=== PATIENT | male | born 1935 | race Caucasian/White ===

== ENCOUNTER 2016-10-07 20:06 | Emergency (ER) | payer MEDICARE, BC ==
[~2016-10-07] VITALS: Ht 180.3 cm; Wt 102.1 kg
[~2016-10-07 20:06] MED LIST: ASPI-COR81 M1 PO; KLOR-CON 1010 MEQ PO; LASIX20 MG PO; LIPITOR20 MG PO; LOTREL 10 MG-201 CAP PO; MAGNESIUM27 MG PO; MIRAPEX0.5 MG PO; Motrin,Rufen800 MG PO; NEXIUM40 MG PO; SINEMET 25-1001 TA1 PO; TRICOR145 MG PO; VITAMIN D31000 IU PO; XANAX0.25 MG PO
[2016-10-07] MEDS ORDERED: GLYCOPYRROLATE1 MG PO (20:10)
[2016-10-07] MEDS ORDERED: ACYCLOVIR200 MG/5 M PO (21:11)
[2016-10-07] MEDS ORDERED: TYLENOL W/ CODEI5 ML PO (21:11)
[2016-10-07] MEDS ORDERED: KENALOG 0.1%80 GM T (21:13)
== END 2016-10-07 21:41 | disposition home or self-care (01) ==
LOC: ED 20:06
DX: L25.9 Unspecified contact dermatitis, unspecified cause (principal); B02.9 Zoster without complications; I10 Essential (primary) hypertension; E78.5 Hyperlipidemia, unspecified; Z79.82 Long term (current) use of aspirin; Z79.899 Other long term (current) drug therapy

== ENCOUNTER 2016-12-12 22:18 | Inpatient (IN) | payer MEDICARE, BC ==
[~2016-12-12] VITALS: Ht 172.7 cm; Wt 88.6 kg
--- NOTE | ~2016-12-12 | CON ---
[place], [place] REPORT OF CONSULTATION NAME: JAYMIE RASHID UNIT #: [id number] ROOM: 409 DOCTOR: RONNA HernándezUMESH BIRTHDATE: [birth year] DOS: 12/13/2016 HISTORY OF PRESENT ILLNESS: This is an 80-year-old male with chronic debility secondary to severe Parkinson's disease with very limited mobility and difficulty ambulating. He was admitted to the Emergency Department with redness in his legs as well as severe weakness. The patient has, it sounds like, a home health aide that comes in to help wash him. He does have a history of bedsores on his buttock area as well as his scrotal area, which he says that he has had off and on for months now; they heal, but then they quickly reopen depending on how he is being transferred. He says they do open very easily and he is complaining of some discomfort on one of the areas on the scrotal area. He says that they have been using some kind of soap on his buttock area and scrotal area, but he is not sure what it is. He does not report any kind of dressings being used other than some sort of soap. PAST MEDICAL HISTORY: Significant for the following: History of acute renal injury, contact dermatitis, diarrhea, history of dyslipidemia, history of herpes zoster, hypertension, lower GI bleed, lymphedema, Parkinson's disease, which is quite severe, rectal bleed, history of reducible bulge of the abdominal wall, history of melanoma. PAST SURGICAL HISTORY: Melanoma excision from the back. SOCIAL HISTORY: He does not smoke and/or drink. FAMILY HISTORY: Significant for emphysema in his father, heart disease in his mother. ALLERGIES: ____ LATEX, ____. CURRENT MEDICATIONS: That have been ordered are as follows: Tricor 145 mg p.o. daily, Lipitor 20 daily, aspirin 81 daily, vancomycin 1500 mg IV daily, Mirapex 0.5 p.o. b.i.d., Xanax 0.25 at bedtime, Sinemet 25 mg 1 tablet q. 6 hours, Calazime cream, meropenem 1 gram IV q. 12, Lovenox 40 subq daily, Protonix 40 p.o. daily, Zofran 4 mg IV q. 6 hours p.r.n., milk of magnesia p.r.n., Dulcolax p.r.n., [place] p.r.n., Tylenol p.r.n. REVIEW OF SYSTEMS: The patient reports poor appetite for the past 24 hours. He denies any chest pain or shortness of breath, nausea or vomiting, abdominal pains, or diarrhea. He is not incontinent of stool or bladder. He states that he has significant pain when just turning over in bed to look at the wounds on his backside. He states that the wounds heal fairly easily, but open up recurrently as well depending on movements and the way he is transferred. He reports rib pain whenever he is being turned over. He reports severe discomfort with his toenails even just touching them or causing extreme pain. PHYSICAL EXAMINATION: VITAL SIGNS: Stable. Temperature is 98.6, pulse is 84, respirations 20, blood pressure is 108/48. GENERAL: This is an alert male, very pleasant and cooperative, who appears [place], [place] REPORT OF CONSULTATION NAME: JAYMIE RASHID UNIT #: [id number] ROOM: [facility] DOCTOR: UMESH FRIEND M.D. BIRTHDATE: [birth year] chronically ill and debilitated. HEENT: His oropharynx is clear. Mucous membranes are moist. Extraocular movements are intact. NECK: There is no JVD. He is very rigid, has very limited mobility. LUNGS: Clear to auscultation bilaterally. CARDIOVASCULAR: S1, S2 regular rate and rhythm. ABDOMEN: Soft and nontender at the present time. EXTREMITIES: He has severe cellulitis of bilateral lower extremities noted they go all the way to the foot up to above the knee and to the thigh areas, even up to the hip on both of his legs, which is quite dramatic. There are multiple hyperkeratosis, cirrhosis on bilateral lower extremities. These scales come right off with just a sterile Q-tip. I do not see any open areas underneath the scales at this point. He states that he had some open draining blisters noted around the ankles. There was only one blister that I saw that did have some purulent material in it and it was located on the right anterior ankle area. This was examined with a sterile Q-tip and purulent material was drained from it just upon examination and then afterwards I did not see any other blistered areas. So, it appears that maybe some of the blisters have broken, but currently I do not see any other blisters at this time. His toes are warm, but once again, he is very sensitive to examination. He has severe onychomycosis bilaterally. I tried to spread the toes. I did not see any open ulcers in between the toes. His dorsalis pedis pulses are palpable, but posterior tibial is difficult to feel. He has no overt calf tenderness that I could appreciate. Upon examination of the buttock area, there is a large discoloration present with what appears to be consistent with a healing ulcer. It is not actually open at this time, but it does appear that he has had some ulceration there that has healed. I would say approximately the size of my hand. He also has discoloration noted on the right buttock area also that seems to be consistent with prior ulceration and also, there is some lichenification noted due to chronic friction between the scrotal and the buttock areas seems to be noted on the right side as well. So, I think that some of that appears to be chronic as well. The posterior scrotum area is erythematous. There is only one small area that is actually opened at this time and that open area is a small ulceration that is really the size of an eraser and it is tender to touch; however, but the surrounding tissue does not appear tender. It is not acutely warm, but it seems to be chronically erythematous. LABORATORY DATA: The patient's white count is 25.7 and his hemoglobin is 11. His platelets are 362. His sodium is 135, BUN is 31, creatinine is 1.5, potassium is 3.6, glucose is 121. Albumin is low at 2.6. The patient had a chest x-ray done, which shows left lower lobe atelectasis. 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 He has areas that were reported to be blistering. I do not see any at this time. The one that I had seen actually was a pustule that actually broke just by examination with a sterile Q-tip. I do not see any other blisters or pustules at this time. He already has had venous and arterial Dopplers ordered by Podiatry. Lac-Hydrin has been ordered as well, which should help with the scaling, a lot of this scaling actually just comes off quite [place], [place] REPORT OF CONSULTATION NAME: JAYMIE RASHID UNIT #: [id number] ROOM: [facility] DOCTOR: UMESH FRIEND M.D. BIRTHDATE: [birth year] easily with a sterile Q-tip and I would like to have them wash his legs with chlorhexidine soap for now and continue with the Lac-Hydrin for now as well for any open areas such as pustules seems that I drained, I would like to use Bactroban for now. Podiatry is going to take care of his toenails tomorrow. I would also recommend marking the area of erythema that goes up quite a bit over to the thigh area to make sure that it is improving with therapy. As far as for the pressure ulcers of the buttock area and scrotal area, the buttock area appears to be healed at this time. I would just keep it protected with a foam for now and encourage offloading as much as possible. For the scrotal area, I would use nystatin powder as well as Calazime ointment as well for now. For the small open ulcer, I would apply Bactroban to it for now and keep a close eye on this. For the scrotal area, I would also like Infectious Disease to evaluate the ulcer for their opinion as well secondary to the possibility of herpetic lesion as being also in the differential for this area. UMESH FRIEND MD CM:CONSTR:REPORT OF CONSULTATION 1503 12/13/16 1633 interface
--- NOTE | ~2016-12-12 | PR ---
[place], [place] PROGRESS NOTE NAME: JAYMIE RASHID UNIT #: [id number] ROOM: 409 DOCTOR: JIMMIE PATEL DPM BIRTHDATE: [birth year] DOS: 12/14/2016 SUBJECTIVE: This patient is seen for followup of onychomycosis and painful elongated toenails as well as some cellulitis in both lower legs. He has no complaints at this time. His legs above the knee are sensitive and painful. OBJECTIVE: Upon lower extremity examination, pedal pulses diminished bilaterally, absent hair growth is noted. There is dry scaly stasis dermatitis of both lower legs with no real open wounds noted at this time. There is some dry peeling skin. Nails 1 through 5 bilaterally are thickened, elongated, brittle and dystrophic with subungual debris present. He does have erythema above the knee. The lower legs actually have minimal erythema and increased temperature. Minimal signs of infection at this time. His venous Dopplers were negative for DVT. His arterial study showed some inflow disease that showed severe peripheral vascular disease with occlusion of the distal right SFA with reconstitution at the popliteal artery. Aortoiliac inflow disease was suspected. ASSESSMENT: Peripheral arterial disease bilaterally, venous insufficiency with dermatitis, improving cellulitis in the lower legs, onychomycosis 1 through 5 bilaterally with pain. PLAN: Manual and mechanical debridement of mycotic nails 1 through 5 bilaterally in length and thickness to the level of the nail bed to reduce as such infection. I discussed with the patient and his family member that he does have a fairly severe PAD. This will need to be addressed by a vascular surgeon upon discharge. He has no necrotic areas on the lower leg, foot or ankle. No gangrenous tissue, no open wounds. His erythema is improving in the lower legs, foot and ankle but he still has some erythema proximal to the knee. Would not recommend any compression because of the PAD and follow up with the patient on Saturday if he is still here. There is not a lot from a Podiatry standpoint to do at this point. Reevaluate on Saturday. [place], [place] PROGRESS NOTE NAME: JAYMIE RASHID UNIT #: [id number] ROOM: 409 DOCTOR: JIMMIE PATEL DPM BIRTHDATE: [birth year] JIMMIE PATEL DPM CM:PNTRANS 10 JIMMIE PATEL DPM 12/14/16 131 interface
--- NOTE | ~2016-12-12 | CON ---
[place], [place] REPORT OF CONSULTATION NAME: JAYMIE RASHID UNIT #: [id number] ROOM: 409 DOCTOR: KY LOJA DPM BIRTHDATE: [birth year] DOS: 12/13/2016 SUBJECTIVE: The patient presents as an 80-year-old male with chief complaint of elongated thickened nails of both feet with sores on both ankles with swelling and redness to both lower legs. PAST MEDICAL HISTORY: The patient has a past medical history of bilateral lower leg cellulitis, Parkinson's disease, acute renal injury, contact dermatitis, diarrhea, dyslipidemia, herpes zoster, hypertension, lower gastrointestinal bleed, lymphedema, Parkinson's disease, rectal bleed, reducible bulge abdominal wall, history of melanoma. PAST SURGICAL HISTORY: Melanoma excised from back. SOCIAL HISTORY: Denies illicit drug use, smoking or alcohol. FAMILY HISTORY: Father of emphysema. Mother of heart disease, relation not specified for CHF, diabetes and mother with hypertension. ALLERGIES: None. PHYSICAL EXAMINATION: EXTREMITIES: Lower extremity examination: Pedal pulses diminished both lower extremities. No hair growth bilateral. Dry scaly venous stasis dermatitis of bilateral lower legs with open skin partial thickness medial bilateral ankle. There is edema and pain in both lower extremities, crumby thickened yellow nails 1 through 5 bilateral, causing pain. ASSESSMENT: Onychomycosis, peripheral vascular disease, edema, venous insufficiency, venous stasis dermatitis, xerosis bilateral. PLAN: Evaluation and management. Ordered venous and arterial Doppler of bilateral lower extremity, ordered ammonium lactate 12% applied to both lower extremities. I was not able to debride the patient's nails at this visit as I could not have my instrument pack in the car when I obtained the consult and we will debride the nails tomorrow. KY LOJA DPM CM:CONSTR:REPORT OF CONSULTATION 1156 12/13/16 1238 interface
--- NOTE | ~2016-12-12 | CON ---
[place], [place] REPORT OF CONSULTATION NAME: JAYMIE RASHID UNIT #: [id number] ROOM: 409 DOCTOR: DEQUAN KRAUS [facility] BIRTH[facility]: [birth year] DOS: 12/15/2016 HISTORY OF PRESENT ILLNESS: The patient came in with cellulitis of the both lower extremities with superficial wounds and has severe endomyocardial ischemia of lower extremities and progressing for last 1 year. This time it has gotten worse and came to the emergency room. The popliteal and posterior tibial pulses were markedly diminished, unable to palpate. Skin has also chronic changes. Peripheral arteries in the lower extremities markedly abnormal, more so probably still occlusion of the distal bilateral ____ markedly diminished flow below the knee also. Even femoral pulses palpation is difficult, neuron related, but the poor pulses may also be due to the significant edema. The patient has history of Parkinson's and history of pertinent malnutrition, gastroesophageal reflux disease. The patient has dyslipidemia and history of chronic kidney disease with acute process. Cellulitis of the both lower extremities, probably chronic vascular insufficiency and that is why it is not healing. The podiatrists requested for further management of vascular peripheral arteriogram, aortobifemoral angio with distal run off and revascularization. Options, procedure, complications, and mortality were explained to the patient. Will have Nephrology also follow the patient post angio to follow and carefully manage the renal function because of the contrast-induced nephropathy is one of the considerations. We will be careful about the amount of contrast used we may stay at the procedure. PHYSICAL EXAMINATION: GENERAL: As described. Diminished peripheral circulation with chronic changes from the ischemia, also with cellulitis, and superficial wounds. VITAL SIGNS: The patient is afebrile. Blood pressure 106/51, respiratory rate 18, heart rate 74. LABORATORY DATA: WBC count 13.8, probably invalid information; hemoglobin 11.3; platelet count 380, should be able to give the platelet-active drugs. Electrolytes are normal. Chloride 111, creatinine 0.96. Stable renal function now, should be able to give contrast without any significant decompensation with history of chronic kidney disease in the past. DIAGNOSES: 1. Severe peripheral arterial disease. 2. Secondary cellulitis and skin changes. 3. Diminished pulses in the lower extremities. PLAN: We will perform aortobifemoral angio with runoff with possible intervention. Options, procedures, complications, and mortality risk is explained. [place], [place] REPORT OF CONSULTATION NAME: JAYMIE RASHID UNIT #: [id number] ROOM: 409 DOCTOR: DEQUAN KRAUS [facility] BIRTHDATE: [birth year] MAXWELL BAIRES MD CM:CONSTR:REPORT OF CONSULTATION 1745 12/17/16 1055 interface
--- NOTE | ~2016-12-12 | PR ---
[place], [place] PROGRESS NOTE NAME: JAYMIE RASHID UNIT #: [id number] ROOM: 409 DOCTOR: NATA KRAUS,CHIP Wei BIRTHDATE: [birth year] DOS: 12/15/2016 ADDENDUM I agree with above plans as described. We will follow the patient up clinically and adjust accordingly. CHIP PEACE MD CM:PNTRANS 1203 CHIP PEACE MD 12/17/16 2238 interface
--- NOTE | ~2016-12-12 | PR ---
[place], [place] PROGRESS NOTE NAME: JAYMIE RASHID UNIT #: [id number] ROOM: 409 DOCTOR: BRADLY SHAVERAUGUST BIRTHDATE: [birth year] DOS: SUBJECTIVE: The patient is an 81-year-old male who is being followed for severe cellulitis of bilateral lower extremities, left is worse than right. He has been improving over the last few days. His white count is coming down. He is currently on Ancef. His creatinine has also improved. His ultrasound of the lower extremities was negative for DVT. He denies any fevers, chills, nausea, vomiting. No diarrhea. He has been afebrile. His legs are improving and I also discussed with nursing, who agreed with that assessment. LABORATORY DATA: Showed WBC 13.8, platelets 380, BUN 17, creatinine 0.96. Blood cultures are negative. Urine cultures are negative. PHYSICAL EXAMINATION: VITAL SIGNS: Temp 97.9, pulse 74, respirations 18, BP 106/51. GENERAL: An 81-year-old male, in no acute distress. HEAD, EYES, EARS, NOSE AND THROAT: Normocephalic. No thrush. LUNGS: Clear to auscultation bilaterally. Respirations even and unlabored. HEART: Regular rhythm. No murmur appreciated. ABDOMEN: Soft, nontender. EXTREMITIES: +3 to 4 edema bilateral lower extremity. He does have descent dorsalis pedis pulses. No signs of ischemia. He has erythema of bilateral lower extremities up to his mid thigh, nearly up to the hip on the left. SKIN: Dry, flaking, peeling. Skin is otherwise warm and dry and no rashes. ASSESSMENT: Severe cellulitis of bilateral lower extremities, currently on Ancef. PLAN: At this point, his creatinine has normalized. His Ancef could be increased to q. 8 hours dosing even the severity of his infection, he states it did occur overnight. We will check an ASO titer for strep involvement and if it comes back elevated, I would add clindamycin. AUGUST CHHAYA ABDULLAHI [place], [place] PROGRESS NOTE NAME: JAYMIE RASHID UNIT #: [id number] ROOM: 409 DOCTOR: BRADLY SHAVER,AUGUST BIRTHDATE: [birth year] CHIP PEACE MD CM:PNTRANS 172 [id number] AUGUST BRADLY SHAVER 12/17/16 0811 interface
[~2016-12-12 22:18] MED LIST changes: +ACYCLOVIR200 MG/5 M PO; +GLYCOPYRROLATE1 MG PO; +KENALOG 0.1%80 GM T; +TYLENOL W/ CODEI5 ML PO
[2016-12-12 22:30] VITALS: BP 118/61
[2016-12-12 22:52] LABS: HEMOGLOBIN 11.8 g/dl (14.0-18.0); MEAN CELL VOLUME 87.2 fl (80.0-94.0); MEAN CORPUSCULAR HGB 28.6 pg (27.0-31.0); MEAN CORPUSCULAR HGB CONC 32.8 g/dl (33.0-37.0); MEAN PLATELET VOLUME 9.7 fl (9.6-12.3); PLATELET COUNT AUTOMATED 362 10*3/uL (130-400); RED BLOOD COUNT 4.13 10*6/uL (4.50-5.90); RED CELL DISTRI WIDTH 15.8 % (0-14.5); WHITE BLOOD COUNT 25.7 10*3/uL (4.8-10.8)
[2016-12-12 23:07] LABS: INTERNATIONAL NORM RATIO 1.2 (2.0-3.5); PROTHROMBIN TIME 12.8 SECONDS (8.9-12.2)
[2016-12-12 23:08] LABS: ALBUMIN 2.6 gm/dl (3.1-4.5); ALKALINE PHOSPHATASE 73 U/L (45-117); BILIRUBIN, TOTAL 0.8 mg/dl (0.2-1.0); BUN 31 mg/dl (7-24); CARBON DIOXIDE 24 mmol/L (21-32); CHLORIDE 103 mmol/L (98-107); EST GLOM FILT AFRICAN AMERICAN 54 ml/min; GLUCOSE 121 mg/dL (65-99); POTASSIUM 3.6 mmol/L (3.5-5.1); SGOT/AST 9 IU/L (3-35); SGPT/ALT 7 U/L (12-78); SODIUM 135 mmol/L (136-145); TOTAL PROTEIN 6.3 gm/dL (6.4-8.2)
[2016-12-12 23:09] LABS: CKMB 0.7 ng/ml (0.5-3.6)
[2016-12-12 23:10] VITALS: BP 142/84
[2016-12-12 23:11] LABS: LYMPHOCYTE # 0.5 10*3/uL (1.3-4.4); MONOCYTE # 0.8 10*3/uL (0.1-1.0); NEUTROPHIL # 24.4 10*3/uL (2.3-7.9); NEUTROPHILS 95 % (47-73); PLATELET SUFFICIENCY NORMAL (NORMAL); TOTAL CELLS COUNTED 100 #CELLS; TROPONIN I < 0.015 ng/ml (<0.045)
[2016-12-13] VITALS (8 sets, daily range): BP systolic 104–138; BP diastolic 45–80
[2016-12-13 10:28] LABS: BILIRUBIN NEGATIVE (NEGATIVE); BLOOD NEGATIVE (NEGATIVE); CLARITY CLEAR (CLEAR); COLOR YELLOW (YELLOW); GLUCOSE NEGATIVE (NEGATIVE); KETONE TRACE (NEGATIVE); LEUKO ESTERASE NEGATIVE (NEGATIVE); NITRITE NEGATIVE (NEGATIVE); PROTEIN TRACE (NEGATIVE)
[2016-12-13 10:39] LABS: URINE REFLEX COMMENT YES (NO)
[2016-12-14] VITALS: BP 114/53
[2016-12-14 06:41] LABS: BASO # 0.1 10*3/uL (0.0-0.1); BASO % 0.3 % (0.0-1.0); EOS # 0.2 10*3/uL (0.0-0.4); EOS % 1.1 % (1.0-4.0); HEMATOCRIT 33.2 % (42.0-52.0); HEMOGLOBIN 10.7 g/dl (14.0-18.0); IG # 0.1 10*3/uL (0.0-0.1); LYMPH # 1.4 10*3/uL (1.3-4.4); LYMPH % 7.7 % (27.0-41.0); MEAN CELL VOLUME 88.8 fl (80.0-94.0); MEAN CORPUSCULAR HGB 28.6 pg (27.0-31.0); MEAN CORPUSCULAR HGB CONC 32.2 g/dl (33.0-37.0); MEAN PLATELET VOLUME 10.3 fl (9.6-12.3); MONO # 1.1 10*3/uL (0.1-1.0); MONO % 6.1 % (3.0-9.0); NEUT # 14.8 10*3/uL (2.3-7.9); NEUT % 84.2 % (47.0-73.0); PLATELET COUNT AUTOMATED 356 10*3/uL (130-400); RED BLOOD COUNT 3.74 10*6/uL (4.50-5.90); RED CELL DISTRI WIDTH 15.9 % (0-14.5); WHITE BLOOD COUNT 17.6 10*3/uL (4.8-10.8)
[2016-12-14 07:13] LABS: ALKALINE PHOSPHATASE 81 U/L (45-117); BILIRUBIN, TOTAL 0.7 mg/dl (0.2-1.0); BUN 23 mg/dl (7-24); CARBON DIOXIDE 23 mmol/L (21-32); CHLORIDE 111 mmol/L (98-107); EST GLOM FILT AFRICAN AMERICAN > 60 ml/min; GLUCOSE 74 mg/dL (65-99); POTASSIUM 3.4 mmol/L (3.5-5.1); SGOT/AST 10 IU/L (3-35); SODIUM 140 mmol/L (136-145); TOTAL PROTEIN 5.9 gm/dL (6.4-8.2)
[2016-12-14 07:25] LABS: SGPT/ALT < 6 U/L (12-78)
[2016-12-14 08:00] VITALS: BP 163/73
[2016-12-14 12:00] VITALS: BP 162/78
[2016-12-14 16:00] VITALS: BP 142/78
[2016-12-14 20:00] VITALS: BP 116/59
[2016-12-15] VITALS: BP 125/65
[2016-12-15 06:23] LABS: BASO # 0.1 10*3/uL (0.0-0.1); BASO % 0.7 % (0.0-1.0); EOS # 0.4 10*3/uL (0.0-0.4); EOS % 2.8 % (1.0-4.0); HEMATOCRIT 34.4 % (42.0-52.0); HEMOGLOBIN 11.3 g/dl (14.0-18.0); IG # 0.2 10*3/uL (0.0-0.1); LYMPH # 1.4 10*3/uL (1.3-4.4); LYMPH % 10.3 % (27.0-41.0); MEAN CELL VOLUME 89.1 fl (80.0-94.0); MEAN CORPUSCULAR HGB 29.3 pg (27.0-31.0); MEAN CORPUSCULAR HGB CONC 32.8 g/dl (33.0-37.0); MEAN PLATELET VOLUME 10.1 fl (9.6-12.3); MONO % 7.5 % (3.0-9.0); NEUT # 10.7 10*3/uL (2.3-7.9); NEUT % 77.6 % (47.0-73.0); PLATELET COUNT AUTOMATED 380 10*3/uL (130-400); RED BLOOD COUNT 3.86 10*6/uL (4.50-5.90); RED CELL DISTRI WIDTH 16.2 % (0-14.5); WHITE BLOOD COUNT 13.8 10*3/uL (4.8-10.8)
[2016-12-15 06:38] LABS: BUN 17 mg/dl (7-24); CARBON DIOXIDE 25 mmol/L (21-32); CHLORIDE 111 mmol/L (98-107); EST GLOM FILT AFRICAN AMERICAN > 60 ml/min; GLUCOSE 104 mg/dL (65-99); POTASSIUM 3.7 mmol/L (3.5-5.1); SODIUM 144 mmol/L (136-145)
[2016-12-15 08:00] VITALS: BP 133/59
[2016-12-15 12:00] VITALS: BP 130/66
[2016-12-15 16:00] VITALS: BP 106/51
[2016-12-15 20:00] VITALS: BP 120/62
[2016-12-16] VITALS: BP 137/76
[2016-12-16 06:18] LABS: BASO # 0.1 10*3/uL (0.0-0.1); BASO % 0.9 % (0.0-1.0); EOS # 0.6 10*3/uL (0.0-0.4); EOS % 5.3 % (1.0-4.0); HEMATOCRIT 34.3 % (42.0-52.0); HEMOGLOBIN 10.9 g/dl (14.0-18.0); IG # 0.2 10*3/uL (0.0-0.1); LYMPH # 1.7 10*3/uL (1.3-4.4); LYMPH % 15.9 % (27.0-41.0); MEAN CELL VOLUME 88.2 fl (80.0-94.0); MEAN CORPUSCULAR HGB CONC 31.8 g/dl (33.0-37.0); MEAN PLATELET VOLUME 10.1 fl (9.6-12.3); MONO # 0.9 10*3/uL (0.1-1.0); MONO % 8.7 % (3.0-9.0); NEUT # 7.1 10*3/uL (2.3-7.9); NEUT % 67.3 % (47.0-73.0); PLATELET COUNT AUTOMATED 374 10*3/uL (130-400); RED BLOOD COUNT 3.89 10*6/uL (4.50-5.90); RED CELL DISTRI WIDTH 16.1 % (0-14.5); WHITE BLOOD COUNT 10.5 10*3/uL (4.8-10.8)
[2016-12-16 06:36] LABS: BUN 12 mg/dl (7-24); CARBON DIOXIDE 23 mmol/L (21-32); CHLORIDE 114 mmol/L (98-107); EST GLOM FILT AFRICAN AMERICAN > 60 ml/min; GLUCOSE 90 mg/dL (65-99); POTASSIUM 3.7 mmol/L (3.5-5.1); SODIUM 144 mmol/L (136-145)
[2016-12-16 08:00] VITALS: BP 132/66
[2016-12-16 12:00] VITALS: BP 135/55
[2016-12-16] MEDS ORDERED: NYSTOP100000 U/G T (13:23)
[2016-12-16] MEDS ORDERED: Lac-Hydrin 12%340 GM T (13:23)
[2016-12-16] MEDS ORDERED: BACTROBAN OINT0.9 GM T (13:23)
[2016-12-16] MEDS ORDERED: REMEDY WITH OLI1 PAS T (13:23)
[2016-12-16] MEDS ORDERED: CEFAZOLIN-2 GM/50 ML IV (13:23)
[2016-12-16] MEDS ORDERED: ZEASORB-AF2% T (13:23)
[2016-12-16 16:00] VITALS: BP 130/68
[2016-12-16 20:00] VITALS: BP 149/78
[2016-12-17] VITALS: BP 137/68
[2016-12-17 04:12] LABS: BASO # 0.1 10*3/uL (0.0-0.1); BASO % 0.8 % (0.0-1.0); EOS # 0.6 10*3/uL (0.0-0.4); EOS % 5.6 % (1.0-4.0); HEMATOCRIT 37.2 % (42.0-52.0); HEMOGLOBIN 12.1 g/dl (14.0-18.0); IG # 0.2 10*3/uL (0.0-0.1); LYMPH # 2.5 10*3/uL (1.3-4.4); MEAN CELL VOLUME 87.3 fl (80.0-94.0); MEAN CORPUSCULAR HGB 28.4 pg (27.0-31.0); MEAN CORPUSCULAR HGB CONC 32.5 g/dl (33.0-37.0); MEAN PLATELET VOLUME 9.8 fl (9.6-12.3); MONO # 0.8 10*3/uL (0.1-1.0); MONO % 7.8 % (3.0-9.0); NEUT # 6.2 10*3/uL (2.3-7.9); PLATELET COUNT AUTOMATED 413 10*3/uL (130-400); RED BLOOD COUNT 4.26 10*6/uL (4.50-5.90); WHITE BLOOD COUNT 10.3 10*3/uL (4.8-10.8)
[2016-12-17 04:27] LABS: BUN 11 mg/dl (7-24); CARBON DIOXIDE 24 mmol/L (21-32); CHLORIDE 110 mmol/L (98-107); EST GLOM FILT AFRICAN AMERICAN > 60 ml/min; GLUCOSE 86 mg/dL (65-99); POTASSIUM 3.7 mmol/L (3.5-5.1); SODIUM 142 mmol/L (136-145)
== END 2016-12-17 05:19 | disposition short-term general hospital (02) | DRG 871 ==
LOC: ED 22:18 → 4E 12-13 00:01 → EDHOLD 12-13 00:01 → 4E 12-13 00:16
PROVIDERS: Emergency Medicine Emergency Medical Services; Family Medicine; Internal Medicine
DX: A41.9 Sepsis, unspecified organism (principal); N17.0 Acute kidney failure with tubular necrosis; E43 Unspecified severe protein-calorie malnutrition; L89.132 Pressure ulcer of right lower back, stage 2; G20 Parkinson's disease; L03.115 Cellulitis of right lower limb; N18.3 Chronic kidney disease, stage 3 (moderate); L89.522 Pressure ulcer of left ankle, stage 2; L03.116 Cellulitis of left lower limb; B35.1 Tinea unguium; I12.9 Hypertensive chronic kidney disease with stage 1 through stage 4 chronic kidney disease, or unspecified chronic kidney disease; E78.2 Mixed hyperlipidemia; L85.3 Xerosis cutis; K21.9 Gastro-esophageal reflux disease without esophagitis; I87.2 Venous insufficiency (chronic) (peripheral); I73.9 Peripheral vascular disease, unspecified; E87.6 Hypokalemia; Z91.040 Latex allergy status; Q80.8 Other congenital ichthyosis; Z82.5 Family history of asthma and other chronic lower respiratory diseases; Z82.49 Family history of ischemic heart disease and other diseases of the circulatory system; Z79.82 Long term (current) use of aspirin; Z79.899 Other long term (current) drug therapy; Z68.29 Body mass index [BMI] 29.0-29.9, adult

== ENCOUNTER 2017-01-11 18:19 | Inpatient (IN) | payer MEDICARE, BC ==
[~2017-01-11] VITALS: Ht 172.7 cm; Wt 76.9 kg
--- NOTE | ~2017-01-11 | CON ---
[place], [place] REPORT OF CONSULTATION NAME: JAYMIE RASHID UNIT #: [id number] ROOM: 503 DOCTOR: DEQUAN KRAUS FACC,MAXWELL BIRTHDATE: [birth year] DOS: 01/15/2017 HISTORY OF PRESENT ILLNESS: The patient came in with cellulitis and has been on antibiotics, and no sepsis. PHYSICAL EXAMINATION: VITAL SIGNS: Stable with a temperature of 98, heart rate of 65, respiratory rate is 20, pulse ox 93, blood pressure 131/54. GENERAL: Alert, not in any acute distress, awake and the patient has peripheral artery disease with intervention in the past and should need further work done, but however, right I have to discuss with the daughter. We will do the noninvasive testing. If abnormal, I will communicate with her and the patient. We will do the angiogram and endovascular revascularization, if it is abnormal. If not, we will continue the conservative management. Skin is warm and not diaphoretic, does not appear to be acute vascular insufficiency at this time. Left dorsalis pedis felt, but right appears to be very weak. Posterior tibial is not well felt on both sides. NECK: No jugular venous distention. LUNGS: No rales. HEART: S1, S2 regular. ABDOMEN: Soft. EXTREMITIES: 1+ peripheral edema noted. NEUROLOGICAL: No gross focal neurological deficit noted. Stage 1 pressure ulcer, lower extremity erythema and ____ stage 1 pressure ulcer. Renal function is good and the GFR is greater than 16, creatinine 0.72, electrolytes normal. Hemoglobin 11.5. DIAGNOSES: 1. Bilateral leg cellulitis. 2. Severe peripheral arterial disease. 3. Diminished pulses in the lower extremities. 4. Leukocytosis. 5. Parkinson's. 6. Unintentional tremors. 7. Dyslipidemia. 8. Gastroesophageal reflux disease. 9. Severe protein-calorie malnutrition. 10. Hypertensive cardiovascular disease. The patient is on antibiotics and severe peripheral artery disease may be considered. PLAN: Peripheral arterial study, noninvasive and it is abnormal, consider aortobifemoral angio and endovascular intervention. Explained to the daughter and the patient. Thank you very much for asking me to follow the patient. [place], [place] REPORT OF CONSULTATION NAME: JAYMIE RASHID UNIT #: [id number] ROOM: 503 DOCTOR: MAXWELL BAIRES MD, FACC BIRTHDATE: [birth year] MAXWELL BAIRES MD CM:CONSTR:REPORT OF CONSULTATION 1929 01/16/17 1313 interface
--- NOTE | ~2017-01-11 | CON ---
[place], [place] REPORT OF CONSULTATION NAME: JAYMIE RASHID UNIT #: [id number] ROOM: 503 DOCTOR: BRADLY SHAVER,AUGUST BIRTHDATE: [birth year] DOS: 01/12/2017 HISTORY OF PRESENT ILLNESS: The patient was admitted from ____ here in [place]. He had been there for a weeks. He was recently discharged on Ancef. It appears that the beginning of December for cellulitis. He was discharged on Ancef for 1 week. He is now readmitted with significant erythema, bilateral lower extremities with movement of the right lower extremity. His WBCs were 12.5 on admission. He was started on vancomycin, Zosyn and fluconazole. He had ASO titer ordered, which is pending. ID is consulted for bilateral lower extremity cellulitis. He has also had arterial studies and report at least to have some work done by Vascular in the next week or two. He has been afebrile since admission. PAST MEDICAL HISTORY: As above as well as chronic kidney disease, dyslipidemia, herpes zoster, hypertension, lower GI bleed, onychomycosis, Parkinson's, stasis dermatitis of bilateral lower extremities. SOCIAL HISTORY: Nonsmoker, nondrinker, no illicit drug use. . FAMILY MEDICAL HISTORY: Father of emphysema. Mother of heart disease. She also had diabetes and hypertension. ALLERGIES: Include AMANTADINE, ENTACAPONE, PRAMIPEXOLE, REQUIP AND ARTANE. CURRENT MEDICATIONS: Include Xanax, vancomycin, Mirapex, Theragran, Tricor, Lovenox, Plavix, Coreg, Sinemet, Lipitor, aspirin, vitamin C, Norvasc, Protonix, fluconazole, Xanax, Zosyn, which is currently dosed to every 6 hours, Restoril, [place], Tylenol. LABORATORY DATA: WBC is 11.1, platelets 360, BUN 27, creatinine 0.95, sodium 143. LFTs within normal limits. Blood cultures are negative thus far. REVIEW OF SYSTEMS: Alert, poor historian, but fairly oriented. Some pain in the lower extremities. Denies fevers or chills. No nausea, vomiting or diarrhea, has chronic venous stasis bilateral lower extremities. No itch, very poor mobility. No recent fevers or shaking chills. No headache or dizziness. No chest pain or palpitations. Has lower extremity edema. Has a tremor due to Parkinson's. Further review of systems unremarkable. PHYSICAL EXAMINATION: VITAL SIGNS: Show temperature 98.3, pulse 64, respirations 20, BP 143/65. GENERAL: An 81-year-old male in no acute distress. HEAD, EYES, EARS, NOSE AND THROAT: Normocephalic. He does have thrush. NECK: No cervical lymphadenopathy. CHEST: Diminished bilaterally. Respirations even and unlabored. HEART: Irregular rhythm. No murmur appreciated. ABDOMEN: Soft, positive bowel sounds, nontender, no masses. EXTREMITIES: +2 edema with erythema on the left that extends to the distal thigh. He has faint odor from the right leg. There was no active discharge, but he does have stasis dermatitis with flaking and scaling of skin over her [place], [place] REPORT OF CONSULTATION NAME: JAYMIE RASHID UNIT #: [id number] ROOM: [facility] DOCTOR: BRADLY SHAVERAUGUST BIRTHDATE: [birth year] bilateral feet and lower legs as well as onychomycosis of all of his toes, erythema accompanied by increased warmth. SKIN: Otherwise, warm, dry, free of rashes. ASSESSMENT: Bilateral lower extremity cellulitis, which at this point is recurrent. PLAN: At this point, I will narrow the Zosyn to cefepime, continue the vancomycin and Nystatin swish and swallow for his thrush. The fluconazole should be changed to Lamisil. Dictation ends here. REMIGIO ABDULLAHI CNP CHIP PEACE MD CM:CONSTR:REPORT OF CONSULTATION 57 01/14/17 1130 interface
[~2017-01-11 18:19] MED LIST changes: +BACTROBAN OINT0.9 GM T; +CEFAZOLIN-2 GM/50 ML IV; +Lac-Hydrin 12%340 GM T; +NYSTOP100000 U/G T; +REMEDY WITH OLI1 PAS T; +ZEASORB-AF2% T
[2017-01-11 18:44] VITALS: BP 119/65
[2017-01-11 19:04] VITALS: BP 125/66
[2017-01-11 19:06] LABS: BASO # 0.1 10*3/uL (0.0-0.1); BASO % 0.6 % (0.0-1.0); EOS # 0.8 10*3/uL (0.0-0.4); EOS % 6.2 % (1.0-4.0); HEMOGLOBIN 12.7 g/dl (14.0-18.0); LYMPH # 1.5 10*3/uL (1.3-4.4); LYMPH % 11.8 % (27.0-41.0); MEAN CELL VOLUME 89.5 fl (80.0-94.0); MEAN CORPUSCULAR HGB 28.4 pg (27.0-31.0); MEAN CORPUSCULAR HGB CONC 31.8 g/dl (33.0-37.0); MEAN PLATELET VOLUME 10.1 fl (9.6-12.3); MONO # 0.7 10*3/uL (0.1-1.0); MONO % 5.4 % (3.0-9.0); NEUT # 9.4 10*3/uL (2.3-7.9); NEUT % 75.6 % (47.0-73.0); PLATELET COUNT AUTOMATED 362 10*3/uL (130-400); RED BLOOD COUNT 4.47 10*6/uL (4.50-5.90); RED CELL DISTRI WIDTH 15.5 % (0-14.5); WHITE BLOOD COUNT 12.5 10*3/uL (4.8-10.8)
--- NOTE | 2017-01-11 19:06 | NUR ---
REPORT RECIEVED FROM HERMILA SAHA
[2017-01-11 19:16] LABS: INTERNATIONAL NORM RATIO 1.2 (2.0-3.5)
[2017-01-11 19:24] LABS: ALBUMIN 2.7 gm/dl (3.1-4.5); ALKALINE PHOSPHATASE 80 U/L (45-117); BUN 32 mg/dl (7-24); CHLORIDE 104 mmol/L (98-107); CREATININE 1.18 mg/dL (0.70-1.30); POTASSIUM 4.2 mmol/L (3.5-5.1); SGOT/AST 24 IU/L (3-35); SGPT/ALT 10 U/L (12-78); SODIUM 140 mmol/L (136-145)
[2017-01-11 19:26] LABS: TROPONIN I < 0.015 ng/ml (<0.045)
[2017-01-11 19:45] VITALS: BP 124/60
[2017-01-11 20:20] VITALS: BP 133/63
--- NOTE | 2017-01-11 20:30 | NUR ---
Time: 2029 A 81 year old MALE admitted to 5E under services of CHACE JUAREZ DO. Pt. arrived via bed from ER. Chief complaint: CELLULITIS. GIANCARLO DYSON
[2017-01-11] MEDS ORDERED: AUGMENTIN 875-875 MG PO (21:13)
[2017-01-11] MEDS ORDERED: CENTRUM COMPLE1 EACH PO (21:14)
[2017-01-11] MEDS ORDERED: COREG3.125 MG PO (21:16)
[2017-01-11] MEDS ORDERED: LEVOFLOXACIN500 MG PO (21:17)
[2017-01-11] MEDS ORDERED: NEXIUM40 M1 PO (21:18)
[2017-01-11] MEDS ORDERED: NORCO 5-325 TA1 EACH PO (21:19)
[2017-01-11] MEDS ORDERED: NORVASC5 MG PO (21:20)
[2017-01-11] MEDS ORDERED: PLAVIX75 M1 PO (21:21)
[2017-01-11] MEDS ORDERED: VITAMIN C500 M7 PO (21:25)
[2017-01-11] MEDS ORDERED: XANAX0.25 MG PO (21:31)
--- NOTE | 2017-01-11 21:32 | NUR ---
MED REC UPDATED BY LIST PROVIDED BY RACHEL
--- NOTE | 2017-01-11 21:58 | NUR ---
DR CHRISTY NOTIFIED OF REDNESS TO [facility].
[2017-01-12] VITALS: BP 129/54
--- NOTE | 2017-01-12 04:28 | NUR ---
[facility] LISTED ALLERGY ON PAPERWORK PROVIDED FROM [facility] AND IT WAS ALSO LISTED A DAILY MEDICATION. DR CHRISTY NOTIFIED.
--- NOTE | 2017-01-12 06:56 | NUR ---
ANSWERING SERVICE WAS NOTIFIED OF DR. BAIRES CONSULT. RESPONSE OF NOTIFICATION WAS OK I WILL LET HIM KNOW. GIANCARLO DYSON
--- NOTE | 2017-01-12 06:59 | NUR ---
ANSWERING SERVICE WAS NOTIFIED OF DR. JENNIFER MULLEN. RESPONSE OF NOTIFICATION WAS OK DR MORALES IS ON AND I WILL LET HER KNOW. GIANCARLO DYSON
[2017-01-12 07:10] LABS: BASO # 0.1 10*3/uL (0.0-0.1); EOS # 1.1 10*3/uL (0.0-0.4); EOS % 9.6 % (1.0-4.0); HEMATOCRIT 37.2 % (42.0-52.0); HEMOGLOBIN 11.9 g/dl (14.0-18.0); LYMPH # 1.7 10*3/uL (1.3-4.4); LYMPH % 15.2 % (27.0-41.0); MEAN CELL VOLUME 89.4 fl (80.0-94.0); MEAN CORPUSCULAR HGB 28.6 pg (27.0-31.0); MEAN PLATELET VOLUME 10.3 fl (9.6-12.3); MONO # 0.7 10*3/uL (0.1-1.0); MONO % 6.2 % (3.0-9.0); NEUT # 7.5 10*3/uL (2.3-7.9); NEUT % 67.5 % (47.0-73.0); PLATELET COUNT AUTOMATED 360 10*3/uL (130-400); RED BLOOD COUNT 4.16 10*6/uL (4.50-5.90); RED CELL DISTRI WIDTH 15.6 % (0-14.5); WHITE BLOOD COUNT 11.1 10*3/uL (4.8-10.8)
[2017-01-12 07:33] LABS: INTERNATIONAL NORM RATIO 1.2 (2.0-3.5)
[2017-01-12 07:35] LABS: ALBUMIN 2.5 gm/dl (3.1-4.5); BUN 27 mg/dl (7-24); CHLORIDE 109 mmol/L (98-107); CREATININE 0.95 mg/dL (0.70-1.30); MAGNESIUM 2.1 mg/dL (1.5-2.1); POTASSIUM 3.6 mmol/L (3.5-5.1); SGOT/AST 21 IU/L (3-35); SGPT/ALT 8 U/L (12-78); SODIUM 143 mmol/L (136-145)
[2017-01-12 07:46] LABS: ALKALINE PHOSPHATASE 68 U/L (45-117); PHOSPHOROUS 2.3 mg/dL (2.5-4.9); TOTAL PROTEIN 7.1 gm/dL (6.4-8.2)
[2017-01-12 08:00] VITALS: BP 143/65
--- NOTE | 2017-01-12 08:46 | NUR ---
PT GIVEN PO NORCO AND XANAX PER PRN ORER FOR C/O ALL OVER PAIN/DISCOMFORT AND ANXIETY. WILL MONITOR EFFECTIVENESS. CALL LIGHT WITHIN REACH. BED ALARM MAINTAINED FOR SAFETY.
--- NOTE | 2017-01-12 09:06 | NUR ---
RETURNED CALL AND NOTIFIED OF CONSULT. NEW ORDERS RECEIVED.
--- NOTE | 2017-01-12 09:20 | NUR ---
JAYMIE RASHID [id number] Please refer to the physician's history and physical for past medical history, comorbid conditions, and allergies. Diagnosis: BILATERAL LOWER LEG CELLULITIS Ramiro Score: 12,HIGH RISK WOUND DESCRIPTIONS: Location of the wound: coccyx Type of wound: DTI Size: 9cm x 10cm x <0.1cm Tunneling: none Undermining: none Sinus Tract: none Amount: None Color: Purple Odor: None Periwound Skin Appearance: Erythema Pain (associated with wound): Patient denies pain at time of assessment How does patient state this happened? patient stated he is unsure how this happened Surface the patient is resting on: Position Pro SKIN PREVENTION RECOMMENDATION: 1. Pressure redistribution support surface as appropriate 2. Elevate heels 3. Remove boots/TEDS every shift and reapply 4. Head of bed 30 degrees as tolerated 5. Assess nutrition and hydration 6. Manage moisture 7. Avoid the use of containment devices while in bed 8. Use absorptive products on surfaces limit layers of linens on bed 9. Turn and reposition every 1-2 hours in bed and every 1 hour in chair as tolerated 10. Weight shifts every 15 minutes while up in chair 11. Offloading with pillows or device to keep heels elevated off bed 12. Monitor skin at least every shift 13. Inspect under medical devices twice a day WOUND TREATMENT RECOMMENDATIONS: Continue moisturizing lotion as ordered
--- NOTE | 2017-01-12 10:46 | NUR ---
PT SLEEPING. EARLIER MEDS APPEAR EFFECTIVE AT THIS TIME. WILL CONTINUE TO MONITOR. CALL LIGHT WITHIN REACH.
--- NOTE | 2017-01-12 11:54 | NUR ---
IN AT THE BEDSIDE. NO VOICED COMPLAINTS.
--- NOTE | 2017-01-12 22:31 | NUR ---
MEDICATED WITH NORCO FOR C/O PAIN FROM RIGHT KNEE TO RIGHT HIP.
--- NOTE | 2017-01-12 23:30 | NUR ---
NORCO EFFECTIVE FOR PAIN PER PT.
[2017-01-13] VITALS: BP 119/56
--- NOTE | 2017-01-13 06:15 | NUR ---
NORCO GIVEN PER ORDER FOR BACK PAIN PER PT. STATED "IT FEELS LIKE I SLEPT ON 14 BOWLING BALLS."
--- NOTE | 2017-01-13 07:15 | NUR ---
NORCO EFFECTIVE FOR BACK PAIN PER PT.
[2017-01-13 08:00] VITALS: BP 144/67
--- NOTE | 2017-01-13 12:00 | NUR ---
FAMILY REMAINS AT BEDSIDE. NO VOICED COMPLAINTS. WILL CONTINUE TO MONITOR. VSS. CALL LIGHT WITHIN REACH.
--- NOTE | 2017-01-13 13:12 | NUR ---
CALLED AT THIS TIME REGARDING CONSULT. AWAITING RETURN PHONE CALL.
[2017-01-13 16:00] VITALS: BP 114/54
--- NOTE | 2017-01-13 17:48 | NUR ---
PT MEDICATED WITH PO NORCO PER PRN ORDER FOR C/O KNEE PAIN. UNABLE TO RATE PAIN ON A SCALE. WILL MONITOR EFFECTIVENESS. CALL LIGHT WITHIN REACH.
[2017-01-13 20:00] VITALS: BP 140/65
[2017-01-13 22:00] VITALS: BP 130/55
--- NOTE | 2017-01-13 22:05 | NUR ---
PT. GIVEN PO MEDICATION COUGHING WITH THIS. VITAL SIGNS TAKEN 96-97% RA. PT. TALKING AND SAT PATIENT UP STAYED WITH PATIENT UNTIL HE FELT COMFORTABLE. HOB WAS ELEVATED AND WAS ELEVATED HIGHER WITH THE COUGHING. NO CYANOSIS. RESP. REG AND EASY. LUNG SOUNDS SOUND SAME AT 2000 FOR THE SHIFT, HAD MILD INSP. CRACKLES RIGHT BASE.
[2017-01-14] VITALS: BP 134/71
--- NOTE | 2017-01-14 | NUR ---
PT. RESTING QUIETLY, RESP EASY AND REG. NO COUGHING NOTED.
--- NOTE | 2017-01-14 05:45 | NUR ---
HERNANCO GIVEN PER ORDER FOR KNEE PAIN PT. SAID THEY HURT "REAL BAD".
[2017-01-14 05:52] LABS: ALBUMIN 2.5 gm/dl (3.1-4.5); ALKALINE PHOSPHATASE 70 U/L (45-117); CHLORIDE 109 mmol/L (98-107); CREATININE 0.73 mg/dL (0.70-1.30); POTASSIUM 3.6 mmol/L (3.5-5.1); SGOT/AST 18 IU/L (3-35); SGPT/ALT 6 U/L (12-78); SODIUM 144 mmol/L (136-145); TOTAL PROTEIN 7.4 gm/dL (6.4-8.2)
[2017-01-14 06:04] LABS: BUN 16 mg/dl (7-24)
[2017-01-14 06:15] LABS: BASO # 0.1 10*3/uL (0.0-0.1); BASO % 0.9 % (0.0-1.0); EOS # 0.9 10*3/uL (0.0-0.4); EOS % 9.4 % (1.0-4.0); HEMATOCRIT 36.9 % (42.0-52.0); HEMOGLOBIN 11.7 g/dl (14.0-18.0); LYMPH # 1.7 10*3/uL (1.3-4.4); LYMPH % 16.6 % (27.0-41.0); MEAN CELL VOLUME 88.5 fl (80.0-94.0); MEAN CORPUSCULAR HGB 28.1 pg (27.0-31.0); MEAN CORPUSCULAR HGB CONC 31.7 g/dl (33.0-37.0); MEAN PLATELET VOLUME 10.7 fl (9.6-12.3); MONO # 0.7 10*3/uL (0.1-1.0); MONO % 6.5 % (3.0-9.0); NEUT # 6.6 10*3/uL (2.3-7.9); NEUT % 66.1 % (47.0-73.0); PLATELET COUNT AUTOMATED 324 10*3/uL (130-400); RED BLOOD COUNT 4.17 10*6/uL (4.50-5.90); RED CELL DISTRI WIDTH 15.9 % (0-14.5)
--- NOTE | 2017-01-14 06:45 | NUR ---
NORCO EFFECTIVE FOR KNEE PAIN PER PT. "IT'S HELPED"
[2017-01-14 08:00] VITALS: BP 150/74
[2017-01-14 12:00] VITALS: BP 146/76
[2017-01-14 16:00] VITALS: BP 136/70
[2017-01-14 20:00] VITALS: BP 140/65
--- NOTE | 2017-01-14 21:15 | NUR ---
PATIENT GIVEN XANAX FOR ANXIETY. WILL MONITOR
--- NOTE | 2017-01-14 22:11 | NUR ---
PATIENT RESTING WITH EYES CLOSED AT THIS TIME.XNANAX EFFECTIVE.
--- NOTE | 2017-01-14 23:36 | NUR ---
PATIENT RESTING IN BED. NO VOICED COMPLAINTS AT THIS TIME. RESPIRATIONS EASY/REGULAR. NO SXS OF DISTRESS. HEEL BOOTS IN PLACE; CASTANO PATENT DRAINING LEANNA. IV ANTIBIOTIC RUNNING ORDERED. CALL LIGHT IN REACH.
[2017-01-15] VITALS: BP 145/72
--- NOTE | 2017-01-15 01:25 | NUR ---
SLEEPING. NO SXS OF DISTRESS. ANTIBIOTIC INFUSING ORDERED. CALL LIGHT IN REACH.
--- NOTE | 2017-01-15 02:57 | NUR ---
PATIENT REQUESTED AND RECEIVED NORCO ORDERED FOR C/O LEG PAIN RATED AN 8. WILL MONITOR EFFECTIVENESS.
--- NOTE | 2017-01-15 03:59 | NUR ---
EARLIER NORCO APPEARS EFFECTIVE. PATIENT RESTING QUIETLY WITH NO SXS OF DISTRESS. RESPIRATIONS EASY/REGULAR. CALL LIGHT IS IN REACH. WILL MONITOR.
--- NOTE | 2017-01-15 04:13 | NUR ---
PATIENT MEDICATED WITH PRN XANAX ORDERED FOR C/O AND SXS OF ANXIETY AND RESTLESSNESS.
[2017-01-15 06:53] LABS: BASO # 0.1 10*3/uL (0.0-0.1); BASO % 0.7 % (0.0-1.0); EOS # 0.7 10*3/uL (0.0-0.4); EOS % 5.3 % (1.0-4.0); HEMATOCRIT 35.2 % (42.0-52.0); HEMOGLOBIN 11.5 g/dl (14.0-18.0); LYMPH # 2.1 10*3/uL (1.3-4.4); LYMPH % 15.5 % (27.0-41.0); MEAN CELL VOLUME 87.6 fl (80.0-94.0); MEAN CORPUSCULAR HGB 28.6 pg (27.0-31.0); MEAN CORPUSCULAR HGB CONC 32.7 g/dl (33.0-37.0); MEAN PLATELET VOLUME 10.5 fl (9.6-12.3); MONO # 0.9 10*3/uL (0.1-1.0); MONO % 6.4 % (3.0-9.0); NEUT # 9.9 10*3/uL (2.3-7.9); NEUT % 71.8 % (47.0-73.0); PLATELET COUNT AUTOMATED 328 10*3/uL (130-400); RED BLOOD COUNT 4.02 10*6/uL (4.50-5.90); RED CELL DISTRI WIDTH 15.9 % (0-14.5); WHITE BLOOD COUNT 13.8 10*3/uL (4.8-10.8)
[2017-01-15 07:28] LABS: BUN 14 mg/dl (7-24); CHLORIDE 109 mmol/L (98-107); CREATININE 0.72 mg/dL (0.70-1.30); POTASSIUM 3.5 mmol/L (3.5-5.1); SODIUM 145 mmol/L (136-145)
[2017-01-15 08:00] VITALS: BP 169/71
--- NOTE | 2017-01-15 08:00 | NUR ---
ASSESSMENT COMPLETE. PT ANSWERS ORIENTATION QUESTIONS CORRECTLY, HOWEVER SOME CONFUSION NOTED AT TIMES. HEEL RISER BOOTS ON, BILATERAL LOWER EXTREMITY WITH DRY, FLAKEY SKIN/REDDENED/MINIMAL EDEMA NOTED. HEELS MUSHY WITH DRY FLAKEY SKIN. CASTANO CATH INTACT, URINE VERY CLOUDY WITH SEDIMENT. BRUISE NOTED TO LEFT FOREARM. PT STATES NO NEES AT THIS TIME
--- NOTE | 2017-01-15 09:00 | NUR ---
case management visits with patient, patient sleeping at this time, will have medical planner talk to patient's regarding discharge arrangements
--- NOTE | 2017-01-15 09:29 | NUR ---
PT STATES ANXIETY, SCHEDULED XANAX GIVEN. MORNING MEDICAIONS GIVEN, PT UNDERSTANDS ALL MEDICAION, NO QUESTIONS AT THIS TIME
--- NOTE | 2017-01-15 10:20 | NUR ---
PHYSICAL THERAPY PAtient with Doctors at this time. Thank you for this referral. Nazanin Mott,PT
--- NOTE | 2017-01-15 10:31 | NUR ---
PHYSICAL THERAPY Requests no PT at this time. Thank you for this referral. Nazanin Lindquist,PT
--- NOTE | 2017-01-15 11:38 | NUR ---
Patient came from [facility] where he was skilled. Discussed plan with patients , mat, who stated she would like him to return upon discharge. According to Iona Davila, patient can return to the [facility] when medically stable for discharge.
[2017-01-15 12:00] VITALS: BP 131/54
--- NOTE | 2017-01-15 15:55 | NUR ---
SPOKE TO DR. BAIRES, MADE AWARE HAD VENOUS AND ARTERIAL U/S DONE ONE MONTH AGO. NOTIFIED OF RESULTS FROM PREVIOUS TESTING, OKAY TO CANCEL U/S ORDERED NOW.
[2017-01-15 16:00] VITALS: BP 135/67
--- NOTE | 2017-01-15 18:00 | NUR ---
NOTIFIED PHYSICIAN, DR. HEATH THAT NO ORDER FOR CASTANO TO BE MAINTAINED IS IN. ALSO MADE AWARE PATIENT IS STATING THAT HE WISHES TO NOT RECEIVE TREATMENT ANYMORE AND WANTS TO RETURN TO INTERMEDIATE TONIGHT OR TOMORROW. NO NEW ORDERS AT THIS TIME
--- NOTE | 2017-01-15 19:30 | NUR ---
DR. BAIRES IN TO SEE PATIENT. HE DISCUSSED WITH PATIENT AND WITH DAUGHTER TREATMENT PLAN TO DO VASCULAR STUDIES PRIOR TO ANY INTERVENTION. DR. BAIRES WOULD LIKE THE HOSPITALIST TO BE MADE AWARE OF PLAN, PLAN PASSED ON TO ONCOMING SHIFT
--- NOTE | 2017-01-15 19:55 | NUR ---
PATIENT RESTING IN BED. RESPIRATIONS EASY/REGULAR. NO SXS OF DISTRESS. HE STATES AFTER HIS VASCULAR STUDY TOMORROW HE WANTS TO REFUSE CARE AND GO BACK TO THE [facility] HOME TO BE WITH HIS . HE IS COOPERATIVE WITH CARE. CALL LIGHT IS IN REACH.
[2017-01-15 20:00] VITALS: BP 134/86
--- NOTE | 2017-01-15 21:27 | NUR ---
PER PATIENT HE DID NOT SLEEP WELL LAST NIGHT. I ASKED HIM IF HE WANTED TO TRY A SLEEPING PILL TONIGHT AND HE AGREED. MEDICATED WITH PRN RESTORIL ORDERED. PATIENT TOOK PILL AFTER MIXING IT IN PUDDING. FOLLOWED BY A SIP OF HARMONY ANGELICA. NO COMPLAINTS AT THIS TIME. CALL LIGHT IS IN REACH.
[2017-01-16] VITALS: BP 130/62
--- NOTE | 2017-01-16 00:28 | NUR ---
RESTING IN BED. PATIENT STILL STATES HE JUST WANTS TO BE AT THE [facility] WITH HIS . NO VOICED COMPLAINTS. CALL LIGHT IS IN REACH. ANTIBIOTIC RUNNING ORDERED.
--- NOTE | 2017-01-16 01:29 | NUR ---
RESTING QUIETLY IN BED. NO VOICED COMPLAINTS. CALL LIGHT IN REACH.
--- NOTE | 2017-01-16 04:35 | NUR ---
RESTING QUIETLY IN BED. RESPIRATIONS EASY/REGULAR. NO SXS OF DISTRESS. CALL LIGHT IN REACH.
--- NOTE | 2017-01-16 05:04 | NUR ---
PATIENT REQUESTED AND RECEIVED NORCO ORDERED FOR C/O RIGHT KNEE PAIN. WILL MONITOR EFFECTIVENESS
--- NOTE | 2017-01-16 06:15 | NUR ---
MEDICATION APPEARS EFFECTIVE. PATIENT RESTING WITH FEWER SXS OF PAIN AND DISCOMFORT.
[2017-01-16 08:00] VITALS: BP 147/68; BP 152/68
[2017-01-16 08:39] LABS: BASO # 0.1 10*3/uL (0.0-0.1); BASO % 0.7 % (0.0-1.0); EOS # 0.5 10*3/uL (0.0-0.4); EOS % 4.8 % (1.0-4.0); HEMATOCRIT 36.5 % (42.0-52.0); HEMOGLOBIN 11.8 g/dl (14.0-18.0); LYMPH # 2.3 10*3/uL (1.3-4.4); LYMPH % 20.4 % (27.0-41.0); MEAN CELL VOLUME 87.1 fl (80.0-94.0); MEAN CORPUSCULAR HGB 28.2 pg (27.0-31.0); MEAN CORPUSCULAR HGB CONC 32.3 g/dl (33.0-37.0); MEAN PLATELET VOLUME 10.2 fl (9.6-12.3); MONO # 0.8 10*3/uL (0.1-1.0); MONO % 7.5 % (3.0-9.0); NEUT # 7.5 10*3/uL (2.3-7.9); NEUT % 66.2 % (47.0-73.0); PLATELET COUNT AUTOMATED 297 10*3/uL (130-400); RED BLOOD COUNT 4.19 10*6/uL (4.50-5.90); RED CELL DISTRI WIDTH 16.2 % (0-14.5); WHITE BLOOD COUNT 11.3 10*3/uL (4.8-10.8)
[2017-01-16 08:54] LABS: BUN 14 mg/dl (7-24); CHLORIDE 110 mmol/L (98-107); CREATININE 0.66 mg/dL (0.70-1.30); POTASSIUM 3.2 mmol/L (3.5-5.1); SODIUM 143 mmol/L (136-145)
--- NOTE | 2017-01-16 09:38 | NUR ---
case management visits with patient, patient will return to [facility] when medically stable for discharge
--- NOTE | 2017-01-16 09:57 | NUR ---
SPOKE WITH SOMEONE FROM DR BAIRES'S OFFICE PATIENT WILL BE DISCHARGED BACK TO [facility]. PATIENT WILL SEE DR BAIRES IN OFFICE NEXT SATURDAY.
[2017-01-16 12:00] VITALS: BP 142/78; BP 142/80
--- NOTE | 2017-01-16 12:00 | NUR ---
CALLED DR HEATH NOTIFIED HER OF [facility] THROUGH COMING BACK AT 27.8, CALLED SHAUNA IN PHARMACY TO NOTIFY HIM OF [facility] THROUGH WELL. HE WILL ADJUST DOSAGE
[2017-01-16 12:01] VITALS: BP 150/62
[2017-01-16] MEDS ORDERED: DOXYCYCLINE100 M3 PO (13:26)
[2017-01-16] MEDS ORDERED: ASPIRIN CHEWABL81 M1 PO (13:26)
[2017-01-16] MEDS ORDERED: LAMISIL250 MG PO (13:26)
[2017-01-16] MEDS ORDERED: NORCO 5-325 TA1 EACH PO (13:26)
[2017-01-16] MEDS ORDERED: FENOFIBRATE160 MG PO (13:26)
[2017-01-16] MEDS ORDERED: XANAX0.25 MG PO ×2 (13:26)
[2017-01-16] MEDS ORDERED: KEFLEX500 M1 PO (13:26)
--- NOTE | 2017-01-16 15:04 | NUR ---
PHYSICAL THERAPY PAtient to be d/c this date. Nazanin Lindquist,PT
--- NOTE | 2017-01-16 15:19 | NUR ---
Patient is being discharged back to the [facility], transpor[facility] scheduled [facility] 4 PM [facility]. NH, nursing and family notified.
--- NOTE | 2017-01-16 16:25 | NUR ---
PATIENT LEFT WITH LIFE TEAM TO GO BACK TO [facility]. HEP LOCK REMOVED. NURSE TO NURSE REPORT GIVEN
== END 2017-01-16 16:25 | disposition other institution (70) | DRG 602 ==
LOC: ED 18:19 → 5E 19:15 → EDHOLD 19:15 → 5E 19:15
PROVIDERS: Hospitalist; Internal Medicine; Physician Assistant; ADMIT Emergency Medicine
DX: L03.116 Cellulitis of left lower limb (principal); E43 Unspecified severe protein-calorie malnutrition; L89.151 Pressure ulcer of sacral region, stage 1; G20 Parkinson's disease; I13.10 Hypertensive heart and chronic kidney disease without heart failure, with stage 1 through stage 4 chronic kidney disease, or unspecified chronic kidney disease; N18.3 Chronic kidney disease, stage 3 (moderate); D64.9 Anemia, unspecified; B35.1 Tinea unguium; L03.115 Cellulitis of right lower limb; I73.9 Peripheral vascular disease, unspecified; E78.5 Hyperlipidemia, unspecified; K21.9 Gastro-esophageal reflux disease without esophagitis; E83.39 Other disorders of phosphorus metabolism; I71.4 Abdominal aortic aneurysm, without rupture; Z88.8 Allergy status to other drugs, medicaments and biological substances; Z79.899 Other long term (current) drug therapy; Z79.82 Long term (current) use of aspirin; Z82.49 Family history of ischemic heart disease and other diseases of the circulatory system; Z83.6 Family history of other diseases of the respiratory system; Z83.3 Family history of diabetes mellitus; Z68.25 Body mass index [BMI] 25.0-25.9, adult

== ENCOUNTER 2017-01-19 08:48 | Emergency (ER) | payer MEDICARE, BC ==
[~2017-01-19] VITALS: Ht 172.7 cm; Wt 79.8 kg
[~2017-01-19 08:48] MED LIST changes: +ASPIRIN CHEWABL81 M1 PO; +AUGMENTIN 875-875 MG PO; +CENTRUM COMPLE1 EACH PO; +COREG3.125 MG PO; +DOXYCYCLINE100 M3 PO; +FENOFIBRATE160 MG PO; +KEFLEX500 M1 PO; +LAMISIL250 MG PO; +LEVOFLOXACIN500 MG PO; +NEXIUM40 M1 PO; +NORCO 5-325 TA1 EACH PO; +NORVASC5 MG PO; +PLAVIX75 M1 PO; +VITAMIN C500 M7 PO
== END 2017-01-19 11:50 | disposition home or self-care (01) ==
LOC: ED 08:48
DX: Z46.6 Encounter for fitting and adjustment of urinary device (principal); I12.9 Hypertensive chronic kidney disease with stage 1 through stage 4 chronic kidney disease, or unspecified chronic kidney disease; N18.3 Chronic kidney disease, stage 3 (moderate); E78.5 Hyperlipidemia, unspecified; K21.9 Gastro-esophageal reflux disease without esophagitis; L89.151 Pressure ulcer of sacral region, stage 1; Z79.899 Other long term (current) drug therapy; Z79.82 Long term (current) use of aspirin; Z88.8 Allergy status to other drugs, medicaments and biological substances; Z88.6 Allergy status to analgesic agent